=== PATIENT | female | born 1965 | race Two or more races ===

== ENCOUNTER 2017-01-26 07:36 | Day surgery (SDC) | payer MEDICAID ==
[2017-01-24 12:56] LABS: ALBUMIN 3.6 g/dL (3.4-5.0); ALKALINE PHOSPHATASE 105 U/L (46-116); ALT/SGPT 48 U/L (14-59); AST/SGOT 25 U/L (15-37); BASOPHIL % 0.4 % (0-2); BILIRUBIN TOTAL 0.15 mg/dL (0.20-1.00); CALCIUM 10.4 mg/dL (8.5-10.1); CARBON DIOXIDE 27.3 mmol/L (21-32); CHLORIDE SERUM 103 mmol/L (98-107); CREATININE SERUM 0.8 mg/dL (0.6-1.0); GFR1 > 60 mL/min; GLUCOSE SERUM 90 mg/dL (74-106); PLATELET COUNT 353 x10^3mcL (130-400); POTASSIUM SERUM 3.9 mmol/L (3.5-5.1); SODIUM SERUM 138 mmol/L (136-145); TOTAL PROTEIN, SERUM 7.8 g/dL (6.4-8.2)
[2017-01-24 12:58] LABS: RED CELL DISTRIBUTION WIDTH 15.1 % (11.5-14.5)
[~2017-01-26] VITALS: Ht 167.6 cm; Wt 99.3 kg
[2017-01-26 08:03] VITALS: BP 149/96
--- NOTE | 2017-01-26 19:08 | NUR ---
RECEIVED PT FROM ER, A+OX4, STATES PAIN IS TOLERABLE AT THIS TIME, STERI STRIPS ON L BREAST CDI.
[2017-01-26 19:45] VITALS: Ht 167.6 cm; Wt 99.3 kg
[2017-01-26 20:38] VITALS: BP 114/65
[2017-01-26 21:03] VITALS: BP 114/65
== END 2017-01-26 22:20 | disposition home or self-care (01) ==
LOC: DS 07:36 → OR 12:30 → DS 12:30 → MU 18:23 → DS 22:20
PROVIDERS: Surgery
PROC: 07B60ZZ Excision of Left Axillary Lymphatic, Open Approach (ICD-10-PCS; 2017-01-26)
PROC: 0HBU0ZZ Excision of Left Breast, Open Approach (ICD-10-PCS; principal; 2017-01-26 12:30)
DX: C50.412 Malignant neoplasm of upper-outer quadrant of left female breast (principal); C77.3 Secondary and unspecified malignant neoplasm of axilla and upper limb lymph nodes; E66.9 Obesity, unspecified; Z68.35 Body mass index [BMI] 35.0-35.9, adult; Z17.0 Estrogen receptor positive status [ER+]
CPT/HCPCS: 88329; 88344; 88361; J0690; J1170; J2001; J2175; J2250; J2405; J2704; J3010; J3490; J7030; Q9968